=== PATIENT | female | born 1990 | race Caucasian/White ===

== ENCOUNTER 2020-05-23 08:08 | Emergency (ER) | payer OTHER, BC, SELFPAY ==
[2020-05-23 08:24] VITALS: BP 146/82; PULSE 94; RESP 20; TEMP 37.1; O2SAT 100
--- NOTE | 2020-05-23 08:38 | ED.FEMALEGU ---
HPI - Female Genitourinary General Chief complaint: Urogenital-Female Stated complaint: std testing Time Seen by Provider: 05/23/20 08:38 Source: patient and RN notes reviewed History of Present Illness HPI Narrative: Patient is a 29-year-old female who presents the urgent care with complaints of possible STD. Patient states that for the last 3 days she has had burning in the margarita-area after having unprotected sex with someone approximately 4 days ago. Patient has had dark brown vaginal discharge for the last week denies of any abdominal pain or back pain. Patient is currently on dialysis 3 times per day due to failed kidney, awaiting a kidney transplant. Patient states that her urine output is very scant and she typically goes only once per day. Patient does have a [facility] [employer] [facility] appointment in June but wanted to be ruled out for STDs prior to her appointment. Patient states she does have mild discomfort with sex. No other acute complaints. No acute distress noted. Patient read the plan of care. Related Data Home Medications Medication Instructions Recorded Confirmed hydralazine 50 mg PO TID 05/23/20 05/23/20 lidocaine-prilocaine 1 applic TOPICAL DAILY 05/23/20 05/23/20 ondansetron HCl 4 mg PO DAILY 05/23/20 05/23/20 prednisone 20 mg PO DAILY 05/23/20 05/23/20 sevelamer carbonate 800 mg PO TID 05/23/20 05/23/20 zolpidem 10 mg PO HS PRN 05/23/20 05/23/20 Allergies Allergy/AdvReac Type Severity Reaction Status Date / Time No Known Allergies Allergy Verified 05/23/20 08:41 Review of Systems Review of Systems: Narrative: CONSTITUTIONAL: Denies fever, chills, or sweats. EYES: Denies visual changes, redness, or discharge. ENT: Denies rhinorrhea, congestion, sore throat, or otalgia. CARDIOVASCULAR: Denies chest pain, palpitations, or edema. RESPIRATORY: Denies cough or dyspnea. GASTROINTESTINAL: Denies abdominal pain, nausea, vomiting, or diarrhea. GENITOURINARY: Reports of burning in the margarita-area, dark brown discharge, painful intercourse SKIN: Denies rash or itching. MUSCULOSKELETAL: Denies back pain, joint pain, or myalgia. NEUROLOGIC: Denies headache, numbness, or weakness. All other systems reviewed are negative, except as documented in HPI. PMFSH Comments At the time of my signature, I reviewed and agree with the nursing past medical, surgical, social, and family history. There is no relevant family history pertinent to the patient complaint. Exam Narrative: Exam Narrative: GENERAL: This is a well-nourished, well-developed patient, in no apparent distress. HEAD: normocephalic, atraumatic. EYES: PERRL. Sclera clear/white. Vision is grossly intact. EARS: External ears normal NOSE: External nose normal with no obvious nasal discharge, nares without redness, no rhinorrhea. THROAT: Mucous membranes moist NECK: Neck supple, SKIN: warm, intact with no suspicious lesions or rash, good texture and turgor. NEURO: awake, alert, and oriented to person, place and time. There were no obvious focal neurologic abnormalities. EXTREMITIES: No clubbing, cyanosis, or edema. Course Vital Signs Vital signs: Vital Signs Temperature 98.7 F 05/23/20 08:24 Pulse Rate 94 05/23/20 08:24 Respiratory Rate 20 05/23/20 08:24 Blood Pressure 146/82 H 05/23/20 08:24 Pulse Oximetry 100 05/23/20 08:24 Temperature 98.7 F 05/23/20 08:24 Pulse Rate 94 05/23/20 08:24 Respiratory Rate 20 05/23/20 08:24 Blood Pressure 146/82 H 05/23/20 08:24 Pulse Oximetry 100 05/23/20 08:24 Reviewed-patient is informed that they may have pre-hypertension or hypertension based on a blood pressure reading in the department. I recommend the patient call the primary care provider listed on their discharge instructions or a physician of their choice this week to arrange follow-up for further evaluation of possible pre-hypertension or hypertension. MDM - Female Genitourinary MDM Narrative Medical decision making narrative: Reviewed lab res
== END 2020-05-23 09:20 | disposition home or self-care (01) ==
PROVIDERS: Emergency Provider Nurse Practitioner Family
DX: N89.8 Other specified noninflammatory disorders of vagina (principal); Z72.51 High risk heterosexual behavior; N18.6 End stage renal disease; Z99.2 Dependence on renal dialysis
CPT/HCPCS: 81003; 87491; 87591; 87661; 99214; G0463